=== PATIENT | male | born 1980 | race African-American/Black ===

== ENCOUNTER 2018-06-09 14:38 | Emergency (ER) | payer OTHER ==
[~2018-06-09] VITALS: Ht 193 cm; Wt 119.1 kg
[2018-06-09 14:41] VITALS: TEMP 99.1
[2018-06-09] MEDS ORDERED: ZESTRIL40 MG PO (14:56)
[2018-06-09 15:12] LABS: BASO % 0.5 % (0.0-2.0); EOS # 0.2 (0.0-0.7); EOS % 2.5 % (0-4.0); GRAN # 2.9 (1.4-6.5); GRAN % 43.7 % (42.2-75.2); HEMOGLOBIN 12.4 g/dl (13.5-18.0); LYMPH # 2.9 (1.2-3.4); LYMPH % 44.2 % (20.0-51.0); MEAN CELL VOLUME 83 fl (80.0-100.0); MEAN CORPUSCULAR HEMOGLOBIN 26 pg (27.0-31.0); MEAN CORPUSCULAR HGB CONC 32 g/dl (33.0-37.0); MEAN PLATELET VOLUME 9.4 fl (7.4-10.4); MONO # 0.6 (0.1-0.6); MONO % 8.8 % (1.7-9.3); PLATELET COUNT 233 K/mm3 (130-400); RED BLOOD COUNT 4.71 M/mm3 (4.20-5.60)
[2018-06-09 15:22] LABS: ALBUMIN 4.1 gm/dL (3.5-5.0); BILIRUBIN,TOTAL 0.1 mg/dL (0.0-1.0); CALCIUM 9.3 mg/dL (8.4-10.2); CREATININE, serum 1.52 mg/dL (0.66-1.25); POTASSIUM 4.3 mmol/L (3.4-5.0); TOTAL PROTEIN 7.6 gm/dL (6.4-8.2)
[2018-06-09 16:51] VITALS: BP 141/90; PULSE 61
== END 2018-06-09 16:50 | disposition home or self-care (01) ==
LOC: COL.ER 14:38
PROVIDERS: Family Medicine
DX: S30.1XXA Contusion of abdominal wall, initial encounter (principal); Q61.3 Polycystic kidney, unspecified; V43.62XA Car passenger injured in collision with other type car in traffic accident, initial encounter
CPT/HCPCS: J7030; Q9967